=== PATIENT | male | born 1980 | race American Indian/Alaskan Native ===

== ENCOUNTER 2017-02-03 00:45 | Emergency (ER) | payer SELFPAY ==
--- NOTE | 2017-02-03 08:15 | Emergency Department Report ---
ED Rash HPI - HPI Chief Complaint: Skin Rash Stated Complaint: BODY RASH Duration: 4 Days Location: Chest, Back, Abdomen Suspected Cause: Unknown Rash Symptoms: Yes Itching, No Facial Swelling, No Tongue/Oral Swelling, No Breathing Difficulties, No Choking Sensation, No Wheezing/Dyspnea, No Peeling, No Blistering, No Fever, No Lightheaded, No Malaise, No Myalgias Severity: moderate (rashaun tree distribution of the rash) Other History: 36 y/o M with no signficant PMHX presents with a diffuse rash localized on his trunk, chest, and abdomen that he noticed 4 days ago. No hx of STD or new drugs. Pt states that it is extremely itchy. Pt denies any new lotions, detergents, deodrants. He denies any swelling or the lips, throat, or tongue. He denies any SOB, resp distress, or chest pain/tightness. pt states that he thought it was ringworm so he has been trying lotromin with no relief. Pt denies any pus, oozing, or drainage from the rash. NKDA. ED Review of Systems ROS: Stated complaint: BODY RASH Other details as noted in HPI Constitutional: no symptoms reported Eyes: denies: eye pain, eye discharge, vision change ENT: denies: ear pain, throat pain Respiratory: denies: cough, shortness of breath, wheezing Cardiovascular: denies: chest pain, palpitations Musculoskeletal: denies: back pain, joint swelling, arthralgia Skin: rash, pruritus, other (hyperpigmented diffuse rash noted on the trunk and back) Neurological: denies: headache, weakness, paresthesias Psychiatric: denies: anxiety, depression ED Past Medical Hx - Past Medical History Previous Medical History?: No - Surgical History Past Surgical History?: No - Medications Home Medications: Home Medications Medication Instructions Recorded Confirmed Last Taken Type Ondansetron [Zofran Odt] 4 mg PO Q8HR #12 tab.rapdis 02/03/17 Unknown Rx Triamcinolone 0.025% (Nf) [Kenalog 1 applic TP TID #1 tube 02/03/17 Unknown Rx 0.025% OINT] predniSONE [Deltasone] 10 mg PO QDAY #4 tab 02/03/17 Unknown Rx Rash Exam - Exam General: Vital signs noted. No distress. Alert and acting appropriately. HEENT: No Periorbital Edema, No Conjuctival Injection, No Chemosis, No Perioral Edema, No Tongue Edema, No Uvular Edema, No Compromised Airway, No Drooling Lungs: Yes Good Air Exchange, No Wheezes, No Ronchi, No Stridor, No Cough, No Labored Respirations, No Retractions, No Use of Accessory Muscles Heart: Yes Regular, No Murmur Front/Back of Body, Lg (Color): 1 - there was a diffuse rash noted at the trunk, herald patches with a rashaun tree distribution. There were no rash/lesions noted in the mouth palms or soles of the feet. 2 - there was a diffuse rash noted at the trunk, herald patches with a rashaun tree distribution. There were no rash/lesions noted in the mouth palms or soles of the feet. Skin: No Urticarial Rash, No Maculopapular Rash, No Morbilliform rash, No Bulla( e), No Excoriations, No Weeping, No Tenderness, No Erythema, No Edema, No Encrustations, No Other (there is pityrsias rosea noted on the trunk of the body at the anterior and posterior locations, there is not rash/lesions/ulcers noted in the mouth, palms, or soles of the body. there is also hypopigmented area on the upper back consistent with tinea vesicolor- pt states that has been there for 15 or so years.) Other: Positive: Abdomen Normal, Neurologic Normal, Musculoskeletal Normal ED Course Vital Signs 02/03/17 02/03/17 02/03/17 00:49 00:56 05:18 Temperature 98.3 F 98.3 F 98.3 F Pulse Rate 80 80 77 Respiratory 16 16 18 Rate Blood Pressure 100/71 111/84 Blood Pressure 100/71 [Right] O2 Sat by Pulse 97 97 98 Oximetry ED Medical Decision Making - Medical Decision Making Pt denies any state of immunosuppression/immunocompromised states; no pmhx of STDs reported per patient. Rash was in a rashaun tree distribution and hyperpigmented in nature. There was no signs of resp distress, SOB, or chest tightness. I have given patient prednisone 10 mg for 4 days and triamcinolone cream for the rash. Pt stated that he was feeling nauseous the night before I have given him some zofran to take for the nausea if needed. Pt was discharged in stable condition, vitals were normal, no chest tightness, fever, or chills. Dermatology referral given to patient in the case of no resolution/improvement. Tinea vesicolor was noted on the posterior back as well, pt states that that has been there for at least 15 years- has not bothered the patient; I have treated the more acute issue at hand today and provided follow-up with dermatology as needed. Pt was alert and oriented at discharge. Critical care attestation.: If time is entered above; I have spent that time in minutes in the direct care of this critically ill patient, excluding procedure time. ED Disposition Clinical Impression: Pityriasis rosea, Tinea versicolor, Nausea Disposition: DC- TO HOME OR SELFCARE Is pt being admited?: No Does the pt Need Aspirin: No Condition: Stable Instructions: Tinea Versicolor (ED), Pityriasis rosea (ED) Additional Instructions: Please take medications as directed on the bottle. Please follow-up with turf sales person with continued or worsening symptoms. Please return to the ER immediately if you symptoms worsening or progress: such as chest tightness, swelling, or resp distress. Prescriptions: Ondansetron [Zofran Odt] 4 mg PO Q8HR #12 tab.rapdis predniSONE [Deltasone] 10 mg PO QDAY #4 tab Triamcinolone 0.025% (Nf) [Kenalog 0.025% OINT] 1 applic TP TID #1 tube Referrals: PRIMARY CARE, [Primary Care Provider] - 3-5 Days VON LEMOS MD [Staff Physician] - 3-5 Days [facility] [Outside] - 3-5 Days [facility] [Outside] - 3-5 Days Forms: Work/School Release Form(ED), Accompanied Note
[2017-02-03 08:28] VITALS: BP 122/78
== END 2017-02-03 08:30 | disposition home or self-care (01) ==
LOC: ED 00:45
DX: L42 Pityriasis rosea (principal); B36.0 Pityriasis versicolor
CPT/HCPCS: 99282

== ENCOUNTER 2020-10-02 20:56 | Emergency (ER) | payer BC ==
[2020-10-02 21:25] VITALS: BP 135/90
[2020-10-02] MEDS ORDERED: KETOROLAC 30 MG/1 ML INJ IM ONE (22:46)
[2020-10-02] MEDS ORDERED: dexAMETHasone 20 MG/5 ML VIAL IM ONE (22:46)
[2020-10-02] MEDS ORDERED: oxyCODONE /ACETAMINOPHEN 5-325MG TAB PO ONE (22:46)
[2020-10-02] MEDS ORDERED: GABAPENTIN 300 MG CAP PO ONE (22:46)
--- NOTE | 2020-10-03 00:18 | Emergency Department Report ---
ED Back Pain/Injury HPI - General Chief Complaint: Extremity Injury, Lower Stated Complaint: PAIN IN GLUTES Source: patient Limitations: No Limitations - History of Present Illness Initial Comments: Patient is a 40-year-old -[place] male with history of chronic low back pain who presents to the ED with a complaint of acute exacerbation of his chronic low back pain that radiates to the left leg for the last 2 days, worse in the last 12 hours. Patient states that he has not been able to bear weight on the left leg because of worsening radiating low back pain affecting the left leg. Patient denies fall, traumatic injury, heavy lifting, nausea and vomiting, dysuria, urinary frequency and urgency, abdominal pain, cough, nasal and sinus congestion, sore throat, testicular pain, urinary retention, bowel incontinence, saddle paresthesia, numbness and tingling or weakness of lower extremities bilaterally. MD Complaint: back pain, other (lower back pain radiating to the left leg) -: Sudden, days(s) (2) Similar Symptoms Previously: Yes (chronic low back pain history) Place: home Radiation: left leg Severity: severe Severity scale (0 -10): 8 Quality: sharp, aching Consistency: constant Improves With: none Worsens With: movement, walking Context: turning/twisting Associated Symptoms: denies other symptoms. denies: confusion, weakness, chest pain, numbness, difficulty walking, cough, difficulty urinating, diaphoresis, incontinence, fever/chills, constipation, headaches, abdominal pain, loss of appetite, nausea/vomiting, rash, seizure, shortness of breath, syncope, other - Related Data Previous Rx's Medication Instructions Recorded Last Taken Type Ondansetron [Zofran Odt] 4 mg PO Q8HR #12 tab.rapdis 02/03/17 Unknown Rx Triamcinolone 0.025% (Nf) [Kenalog 1 applic TP TID #1 tube 02/03/17 Unknown Rx 0.025% OINT] predniSONE 10 mg PO QDAY #4 tab 02/03/17 Unknown Rx Baclofen 20 mg PO Q8H PRN #30 tablet 10/03/20 Unknown Rx Gabapentin 300 mg PO Q12H #60 cap 10/03/20 Unknown Rx Naproxen 500 mg PO Q12H PRN #30 tablet 10/03/20 Unknown Rx Prednisone [predniSONE 10 mg 10 mg PO .TAPER #21 tab.ds.pk 10/03/20 Unknown Rx (6-Day Pack, 21 Tabs)] traMADoL [Ultram] 50 mg PO Q6HR PRN #12 tablet 10/03/20 Unknown Rx Allergies Allergy/AdvReac Type Severity Reaction Status Date / Time No Known Allergies Allergy Unverified 10/02/20 21:23 ED Review of Systems ROS: Stated complaint: PAIN IN GLUTES Other details as noted in HPI Constitutional: chills, fever, malaise Eyes: denies: eye pain, eye discharge, vision change ENT: denies: ear pain, throat pain Respiratory: denies: cough, shortness of breath, wheezing Cardiovascular: denies: chest pain, palpitations Endocrine: no symptoms reported Gastrointestinal: denies: abdominal pain, nausea, vomiting, diarrhea Genitourinary: denies: urgency, dysuria Musculoskeletal: back pain (low back pain), arthralgia (low back pain radiating to left leg), myalgia. denies: joint swelling Skin: denies: rash, lesions Neurological: denies: headache, weakness, paresthesias Psychiatric: denies: anxiety, depression Hematological/Lymphatic: denies: easy bleeding, easy bruising ED Past Medical Hx - Past Medical History Previous Medical History?: No Additional medical history: chronic low back pain - Surgical History Past Surgical History?: Yes Additional Surgical History: left ankle - Social History Smoking Status: Never Smoker Substance Use Type: None - Medications Home Medications: Home Medications Medication Instructions Recorded Confirmed Last Taken Type Ondansetron [Zofran Odt] 4 mg PO Q8HR #12 tab.rapdis 02/03/17 Unknown Rx Triamcinolone 0.025% (Nf) [Kenalog 1 applic TP TID #1 tube 02/03/17 Unknown Rx 0.025% OINT] predniSONE 10 mg PO QDAY #4 tab 02/03/17 Unknown Rx Baclofen 20 mg PO Q8H PRN #30 tablet 10/03/20 Unknown Rx Gabapentin 300 mg PO Q12H #60 cap 10/03/20 Unknown Rx Naproxen 500 mg PO Q12H PRN #30 tablet 10/03/20 Unknown Rx Prednisone [predniSONE 10 mg 10 mg PO .TAPER #21 tab.ds.pk 10/03/20 Unknown Rx (6-Day Pack, 21 Tabs)] traMADoL [Ultram] 50 mg PO Q6HR PRN #12 tablet 10/03/20 Unknown Rx ED Physical Exam - General Limitations: No Limitations General appearance: alert, in no apparent distress - Head Head exam: Present: atraumatic, normocephalic, normal inspection - Eye Eye exam: Present: normal appearance, PERRL, EOMI Pupils: Present: normal accommodation - ENT ENT exam: Present: normal exam, normal orophraynx, mucous membranes moist, TM's normal bilaterally, normal external ear exam - Neck Neck exam: Present: normal inspection, full ROM - Respiratory Respiratory exam: Present: normal lung sounds bilaterally. Absent: respiratory distress, wheezes, rales, rhonchi, chest wall tenderness, accessory muscle use, decreased breath sounds, prolonged expiratory - Cardiovascular Cardiovascular Exam: Present: normal rhythm, tachycardia, normal heart sounds. Absent: systolic murmur, diastolic murmur, rubs, gallop - GI/Abdominal GI/Abdominal exam: Present: soft, normal bowel sounds. Absent: tenderness, guarding, hyperactive bowel sounds - Extremities Exam Extremities exam: Present: normal inspection, full ROM, tenderness (Palpable left hip and left thigh tenderness), normal capillary refill - Back Exam Back exam: Present: normal inspection, tenderness (Palpable lumbosacral paraspinal musculoskeletal tenderness), muscle spasm, paraspinal tenderness. Absent: full ROM (limited ROM due to pain) - Neurological Exam Neurological exam: Present: alert, oriented X3, CN II-XII intact, normal gait, reflexes normal - Psychiatric Psychiatric exam: Present: normal affect, normal mood - Skin Skin exam: Present: warm, dry, intact, normal color. Absent: rash ED Course Vital Signs 10/02/20 21:23 Temperature 100.0 F H Pulse Rate 105 H Respiratory 18 Rate Blood Pressure 135/90 O2 Sat by Pulse 97 Oximetry ED Medical Decision Making - Radiology Data Radiology results: report reviewed, image reviewed - Medical Decision Making This is a 40-year-old -[place] male with history of chronic low back pain who presents to the ED with a complaint of acute exacerbation of his chronic low back pain that radiates to the left leg for the last 2 days, worse in the last 12 hours. Patient states that he has not been able to bear weight on the left leg because of worsening radiating low back pain affecting the left leg. In the ED, patient is alert and oriented x3 and is not in any distress. Patient however was slightly tachycardic and febrile with a low-grade fever 100 F. Patient however has not had any other symptoms other than low back pain which he attributes to being chronic and just got worse in the last 2 days. Patient was treated for pain in the ED and observed in the ED. On reevaluation, patient's fever resolved and tachycardia also resolved in the ED. Patient's pain is well controlled with medication. The etiology of the patient's fever is unknown at this time but may as well be viral syndrome. Patient is ambulating in the ED normally with no pain. Patient was therefore discharged home on pain medications and muscle relaxants and advised to follow-up with his primary care physician in 5 to 7 days for reevaluation. Patient is advised return to the ED immediately if symptoms get worse. - Differential Diagnosis Chronic pain; sciatica; muscle spasm; muscle strain Critical care attestation.: If time is entered above; I have spent that time in minutes in the direct care of this critically ill patient, excluding procedure time. ED Disposition Clinical Impression: Spasm of muscle of lower back, Fever of unknown origin (FUO) Chronic low back pain with left-sided sciatica Qualifiers: Back pain laterality: left Qualified Code(s): M54.42 - Lumbago with sciatica, left side; G89.29 - Other chronic pain Disposition: DC-01 TO HOME OR SELFCARE Is pt being admited?: No Does the pt Need Aspirin: No Condition: Stable Instructions: Muscle Cramps and Spasms, [id number], Sciatica, [id number], Chronic Back Pain, [id number], Fever, Adult, [id number], Pain Medicine Instructions, [id number] Additional Instructions: Your symptoms are due to lumbar radiculopathy also known as sciatica affecting the left leg. Therefore take medication with food, drink plenty of fluids and follow-up with your primary care physician in 5 to 7 days for reevaluation. Return to the ED immediately if symptoms get worse. Prescriptions: Baclofen 20 mg PO Q8H PRN #30 tablet PRN Reason: Muscle Spasm Gabapentin 300 mg PO Q12H #60 cap Naproxen 500 mg PO Q12H PRN #30 tablet PRN Reason: Pain , Severe (7-10) Prednisone [predniSONE 10 mg (6-Day Pack, 21 Tabs)] 10 mg PO .TAPER #21 tab. ds.pk traMADoL [Ultram] 50 mg PO Q6HR PRN #12 tablet PRN Reason: Pain Referrals: [facility] [Provider Group] - 3-5 Days Forms: Work/School Release Form(ED) Time of Disposition: 00:20 Print Language: [place]
== END 2020-10-03 00:45 | disposition home or self-care (01) ==
LOC: ED 20:56
DX: M54.42 Lumbago with sciatica, left side (principal); M62.830 Muscle spasm of back; R50.9 Fever, unspecified; Z98.890 Other specified postprocedural states; Z79.899 Other long term (current) drug therapy
CPT/HCPCS: 96372; 99282; J1100; J1885